=== PATIENT | male | born 1985 | race Caucasian/White ===

== ENCOUNTER 2025-08-02 07:26 | Emergency (ER) | payer MEDICAID, SELFPAY ==
--- NOTE | ~2025-08-02 | CT_ITS ---
EXAMINATION: CT MAXILLOFACIAL WITH IV CONTRAST HISTORY: ? dental abscess, R maxillary pain. TECHNIQUE: Serial 1.5 mm helically acquired images were obtained of the facial bones after the intravenous administration of 85 mm Omnipaque 350 per standard departmental protocol. Coronal and sagittal reformatted images were also obtained and evaluated. One or more of the following techniques was used for dose reduction: Automated exposure control, adjustment of the mA and/or kV according to patient size, use of iterative reconstruction technique. DLP: 452 mGy-cm COMPARISON: There are no prior studies available for comparison. FINDINGS: There is significant dental caries involving all of the visualized teeth. The facial bones are intact. No fractures are identified. The globes are intact. There are polyps versus mucous retention cysts in the bilateral maxillary sinuses. There is mucosal thickening in the bilateral maxillary, bilateral ethmoid, and left frontal sinuses. The visualized portion of the brain is unremarkable. No drainable fluid collection is identified. There are prominent lymph nodes bilaterally measuring up to 1.3 cm in short axis dimension on the right and 1.7 cm in short axis dimension on the left. CT/CT facial bones w IV con IMPRESSION: The dedicated dental caries. No drainable fluid collection is identified. Electronically signed by: Torres Lewis MD 08/02/2025 10:06 AM [facility]
[2025-08-02 07:34] VITALS: BP 122/72; PULSE 96; RESP 16; TEMP 36.1; O2SAT 94; BMI 40.7
--- NOTE | 2025-08-02 07:48 | ED_ITS ---
HPI - General Adult General Chief complaint: Dental/Oral Stated complaint: facial pain Time Seen by Provider: 08/02/25 07:47 Source: patient, RN notes reviewed and old records reviewed Mode of arrival: ambulatory Limitations: no limitations History of Present Illness ED Provider: Za CAREY narrative: Patient is a 39-year-old male current smoker presenting to the emergency department with complaint of right maxillary sinus pain radiating around his right eye which began 6 hours ago. Concerned that he has a right upper jaw dental abscess as he has history of this in the past. Has not seen a dentist for approximately 15 years. Also reports recent URI symptoms. Denies fevers. Denies pain with eye movement. MD complaint: facial pain Onset (ago): hour(s) Related Data Previous Rx's ?Medication ?Instructions ?Recorded azithromycin 250 mg tablet See Rx Instructions PO .COM PLEX #6 08/02/25 tabs Allergies Allergy/AdvReac Type Severity Reaction Status Date / Time No Known Allergies (No Known Allergy Verified 08/02/25 07:35 Allergies*) Review of Systems 2 Review of Systems: as per hpi Yes all other systems are reviewed and are negative Constitutional: Constitutional: Reports as per HPI [facility] Social History Social History Smoked in Last 30 Days: Yes Use of substances other than those prescribed or required for medical reasons: No Advance Directives: No Advance Directives Information Provided: Yes Do you have a plan to hurt others: No Plan Physical Exam ED Vital Signs: Vital Signs - 24 hr 08/02/25 07:34 08/02/25 08:18 08/02/25 11:21 Temperature 97 F 97 F 98.2 F Pulse Rate 96 94 78 Respiratory Rate 16 14 18 Blood Pressure 122/72 130/87 104/60 Pulse Oximetry 94 96 95 Oxygen Delivery Method Room Air Room Air Room Air BMI result Body Mass Index 40.7 Vital signs have been reviewed and appear to be correct. Blood pressure normal. Heart rate normal. Respiratory rate normal. Temperature normal. Oxygen saturation normal. Const General: cooperative, healthy appearing and no acute distress Orientation/consciousness: oriented to person, oriented to place, oriented to time and patient oriented x3 Limitations: no limitations HENMT Head: Yes normocephalic and Yes atraumatic Ears: external ears normal General nose exam: Normal external nose present, Normal nasal mucous membranes and turbinates present and Normal septum present Face and sinus: Yes face symmetric, No erythema, No fluctuance and Yes sinus tenderness (right maxillary tenderness) Mouth: Normal oral and palatal mucosa present, lip normal, oropharynx normal and moist mucous membranes Teeth and gingiva: caries, dentures and poor dentition Teeth image: 2 1. small tender tooth remnant, without surrounding gingival erythema, edema, fluctuance Throat: Yes uvula midline Eyes General: appearance normal, both eyes and all related structures Visual Kenney: normal visual kenney by confrontation Periorbital: periorbital findings normal Pupils: Equal, round and reactive pupils present EOM: EOMs intact bilaterally (pain free) Neck Neck: Yes normal visual inspection, Yes full ROM, Yes no lymphadenopathy and Yes supple Resp Effort & Inspection: normal respiratory effort and able to speak in complete sentences Auscultation: clear to auscultation bilaterally Cardio Rate: regular rate Rhythm: regular rhythm Heart sounds: S1 normal heart sound present and S2 normal heart sound present GI Palpation (GI): Soft to palpation and nontender Auscultation: normoactive bowel sounds General: Yes no CVA tenderness Back/Spine/Pelvis Back: no CVA tenderness Skin General skin exam: elasticity normal and turgor normal Neuro General: oriented to person, oriented to place, oriented to time, patient oriented x3, moves all extremities, no focal motor deficits and CN's II-XI intact bilaterally Cranial nerves: Yes Equal, round and reactive pupils present Cognition (Neuro): normal cognition Extrem General: Yes full ROM, Yes no pedal edema and Yes no calf tenderness Psych Mental Status: mental status grossly normal Affect: normal affect Thought process: Normal thought process present Medications Administered Discontinued Medications Generic Name Dose Route Start Last Admin Trade Name Noam PRN Reason Stop Dose Admin Iohexol 100 ml 08/02/25 09:45 08/02/25 09:46 Iohexol 350 Mg/Ml 100 Ml Infus..Btl IV 08/02/25 09:46 85 ml ONCE ONE Administration Medical Decision Making Medical Decision Making [facility] Narrative: Patient is a 39-year-old male current smoker presenting to the emergency department with complaint of right maxillary sinus pain radiating around his right eye which began 6 hours ago. On exam patient is awake, A+Ox3, VS WNL, afebrile, normal neurological exam without focal deficits, physical exam findings as above. Given reported symptoms and physical exam findings, initial differential includes but is not limited to dental infection, sinus infection, sinus abscess. Do not suspect Jimmy's angina, dental abscess not visible. Do not suspect preseptal or septal cellulitis. Labs notable for no leukocytosis, normal ESR and CRP. CT face notable for dental caries, no abscess. My interpretation is in agreement with the radiologist's interpretation. Results discussed with patient and all questions answered. Will treat for acute rhinosinusitis with a course of azithromycin. Advised to follow up with PCP as needed. Return precautions discussed. Patient verbalized understanding of and agreement with plan. Differential Diagnosis Differential Diagnoses: The differential diagnosis associated with the presentation includes as per [facility] Admission/Observation Consideration of admission/observation: Escalation of care including admission/observation considered Patient would have been admitted to the hospital and transferred to appropriate facility had their clinical presentation warranted hospital admission. Lab Data [facility] Lab Attestation statement: I reviewed the patient's lab results. as per [facility] 08/02/25 08:45 08/02/25 08:45 Labs: Lab Results 08/02/25 Range/Units 08:45 WBC 7.0 (4.8-10.8) X10*3/uL RBC 5.51 (4.60-5.80) X10*6/uL Hgb 16.4 (14.0-18.0) g/dl Hct 48.4 (42.0-52.0) % MCV 87.8 (80.0-98.0) fL MCH 29.8 (27.0-33.0) pg MCHC 33.9 (31.0-36.0) g/dl RDW 13.1 (11.0-16.0) % Plt Count 184 (160-400) X10*3/uL MPV 10.3 (9.4-12.4) fL Immature Gran % (Auto) 0.3 (0.0-0.4) % Neut % (Auto) 67.1 (45-73) % Lymph % (Auto) 16.9 L (20-40) % Newberry % (Auto) 9.5 (2-11) % Eos % (Auto) 4.9 H (0-4) % Baso % (Auto) 1.3 (0-2) % Lymph # (Auto) 1.2 (1.2-4.9) X10*3/uL Newberry # (Auto) 0.7 (0.1-1.2) X10*3/uL Eos # (Auto) 0.3 (0.0-0.4) X10*3/uL Baso # (Auto) 0.1 (0.0-0.2) X10*3/uL Abs Immat Gran (auto) 0.02 (0.00-0.03) X10*3/uL Absolute Neuts (auto) 4.7 (2.0-8.3) x10*3/uL Absolute Nucleated RBC 0.000 (0.0-0.012) X10*3/uL Nucleated RBC % (auto) 0.0 (0.0-0.2) /100WBC ESR 13 (1-15) MM/HR Sodium 141 (135-145) mmol/L Potassium 4.5 (3.3-5.1) mmol/L Chloride 106 (96-108) mmol/L Carbon Dioxide 28 (22-29) mmol/L Anion Gap 12 (12-20) BUN 14 (9-16) mg/dL Creatinine 1.14 (0.5-1.4) mg/dL Estim Creat Clear Calc 126.7 Estimated GFR > 60 Random Glucose 104 (60-115) mg/dL Calcium 9.9 (8.4-10.2) mg/dL Total Bilirubin 0.5 (0.0-1.0) mg/dL AST 22 (5-37) U/L ALT 30 (0-40) U/L Alkaline Phosphatase 85 (39-117) U/L C-Reactive Protein 0.17 (< or = 0.50) mg/dL Total Protein 7.4 (6.5-8.0) g/dL Albumin 4.8 (3.5-5.0) g/dL Independent Interpretation I performed an independent interpretation of an: CT Scan Interpretation: CT face notable for dental caries, no abscess. Radiology Impression Discussion of test interpretation with radiology: I have reviewed the radiologist's reading. Radiologist Impression: CT/CT facial bones w IV con IMPRESSION: The dedicated dental caries. No drainable fluid collection is identified. External Record Review External record reviewed: Inpatient record, Office record and Outpatient record Prescription Management I considered prescription management with: Antibiotic Discharge Plan Discharge Clinical Impression: Acute rhinosinusitis Patient Disposition: Home, Self-Care Instructions: Rhinosinusitis (DC) Additional Instructions: You have been diagnosed with?acute bacterial sinusitis?(a sinus infection) and prescribed antibiotics. Please follow these instructions carefully to help you recover. Taking Your Antibiotic * Complete the full course?of antibiotics as prescribed, even if you start feeling better before finishing all the medication.[1] * Most antibiotic courses for sinusitis last?5 to 10 days.[1][4] * Take your medication exactly as directed on the prescription label. * If you were prescribed amoxicillin, take it with or without food. If you were prescribed amoxicillin-clavulanate, taking it with food may help reduce stomach upset. Managing Your Symptoms You can use the following treatments to help relieve your symptoms:[1] * Pain relievers: Twos-boi-njrvdma medications like acetaminophen (Tylenol) or ibuprofen (Advil, Motrin) can help with facial pain, pressure, or headache. * Nasal saline rinses: Rinsing your nose with salt water can help clear out thick mucus and make breathing easier. You can buy saline rinse kits at most pharmacies. * Nasal steroid sprays: Rkhh-jkm-rjhdhmu nasal sprays like fluticasone (Flonase) can reduce swelling and congestion in your nose. * Decongestant sprays: Sprays like oxymetazoline (Afrin) can provide quick relief from stuffiness, but?do not use for more than 3 to 5 days?or your congestion may get worse when you stop.[1] What to Expect * Most people start feeling better within?7 days?of starting antibiotics.[1][4] * Your symptoms should continue to improve over the next 1 to 2 weeks. * Common side effects from antibiotics include nausea, diarrhea, stomach pain, and skin rash.[1][4] When to Call Your Doctor Contact your doctor if:[1] * Your symptoms are?not improving after 7 days?of antibiotic treatment * Your symptoms?get worse at any time?after starting treatment * You develop a high fever (over 102?F or 39?C) * You have severe headache, vision changes, or swelling around your eyes * You have a stiff neck or confusion * You develop a severe rash or allergic reaction to your antibiotic Important Reminders * Do not stop taking your antibiotic early, even if you feel completely better. * Avoid antihistamines (like Benadryl or Claritin) unless you have known allergies, as they may thicken mucus.[1] * Stay well hydrated by drinking plenty of water. * Get adequate rest to help your body fight the infection. Most sinus infections improve with treatment, and serious complications are very rare. If you have any questions or concerns about your treatment, please contact your healthcare provider. It is very important that you follow up with a dentist regarding your dental caries (cavities). Use this list of area dental clinics to find a dentist. Call or visit any of the clinics below to establish care with a dentist (all of which accept [facility]): [facility] [address] [place] [address] [address] [place] [address] [address] [facility] [address] [place] [address] [address] [place] [address] [address] [facility] [address] [place] [address] [address] [facility] [address] [place] [address] [address] [facility] [address] [place] [address] [address] [facility] [address] [place] [address] [address] [facility] [address] [place] [address] [address] [place] [address] [place] [address] [address] [facility] [address] [place] [address] [facility] [address] [place] [address] [facility] [address] [facility] [address] [place] [address] [facility] [address] [place] [address] [facility] [address] [place] [address] [facility] [address] [place] [address] [facility] [address] [facility] [address] [facility] [address] [place] [address] [address] [place] [address] [address] [place] [address] (One number for all locations) [facility] [address] [place] [address] [facility] [address] [place] [address] [facility] [address] [place] [address] Prescriptions: New azithromycin 250 mg tablet See Rx Instructions .ROUTE .COMPLEX Qty: 6 0RF Rx Instructions: For 250 mg dose pack: take 500 mg today (day 1), then 250 mg for 4 days (days 2-5) Print Language: Bengali
[2025-08-02 08:18] VITALS: BP 130/87; PULSE 94; RESP 14; TEMP 36.1; O2SAT 96
--- NOTE | 2025-08-02 08:22 | PC.NURSE ---
Patient presents to ED c/o tooth pain thats radiating into right cheek Tooth pain has been on going but the radiation started this morning Pain rated 10/10 oral temp 97.5 Right cheek warm to touch and slightly firm Provider in to see patient Plan of care on going
[2025-08-02 08:50] LABS: MANUAL DIFF FLAG NO
[2025-08-02 08:52] LABS: Hematocrit 48.4 % (42.0-52.0); Hemoglobin 16.4 g/dl (14.0-18.0); Imm Gran Abs Auto 0.02 X10*3/uL (0.00-0.03); Imm Gran Pct Auto 0.3 % (0.0-0.4); Lymphocytes Absolute Auto 1.2 X10*3/uL (1.2-4.9); Mean Corpuscular HGB Conc 33.9 g/dl (31.0-36.0); Mean Corpuscular Hemoglobin 29.8 pg (27.0-33.0); Mean Corpuscular Volume 87.8 fL (80.0-98.0); NRBC Abs Auto 0.000 X10*3/uL (0.0-0.012); NRBC Pct Auto 0.0 /100WBC (0.0-0.2); Platelet Count 184 X10*3/uL (160-400); Red Blood Count 5.51 X10*6/uL (4.60-5.80); White Blood Count 7.0 X10*3/uL (4.8-10.8)
[2025-08-02 09:09] LABS: Alanine Aminotransferase 30 U/L (0-40); Albumin Level 4.8 g/dL (3.5-5.0); Alkaline Phosphatase 85 U/L (39-117); Anion Gap 12 (12-20); Aspartate Amino Transferase 22 U/L (5-37); Blood Urea Nitrogen 14 mg/dL (9-16); Calcium 9.9 mg/dL (8.4-10.2); Carbon Dioxide 28 mmol/L (22-29); Chloride 106 mmol/L (96-108); Creatinine Clr Calc Pharmacy 126.7; Estimated Glomerular Filt Rate > 60; Potassium 4.5 mmol/L (3.3-5.1); Sodium 141 mmol/L (135-145); Total Protein 7.4 g/dL (6.5-8.0)
[2025-08-02] MEDS: iohexoL 350 MG/ML 100 ML INFUS..BTL IV (09:46)
[2025-08-02 11:21] VITALS: BP 104/60; PULSE 78; RESP 18; TEMP 36.8; O2SAT 95
[2025-08-02 11:59] VITALS: BP 113/74; PULSE 72; RESP 18; TEMP 36.6
== END 2025-08-02 12:01 | disposition home or self-care (01) ==
PROVIDERS: Registered Nurse Emergency; Emergency Provider Emergency Medicine; PCP Physician Assistant
DX: J01.90 Acute sinusitis, unspecified (principal); F17.210 Nicotine dependence, cigarettes, uncomplicated; R51.9 Headache, unspecified
CPT/HCPCS: 36415; 70487; 80053; 85025; 85652; 86140; 99284; 99285; Q9967

== ENCOUNTER → 2025-08-02 08:36 | Outpatient (BNV) | payer MEDICAID, SELFPAY | PROVIDERS: Emergency Provider Emergency Medicine; PCP Physician Assistant; Visit Provider Radiology Diagnostic Radiology | DX: R68.84 Jaw pain (principal) | CPT/HCPCS: 70487 ==